=== PATIENT | male | born 1990 | race Caucasian/White ===

== ENCOUNTER 2020-01-18 04:45 | Emergency (ER) | payer MEDICAID, SELFPAY ==
[~2020-01-18] VITALS: Ht 182.9 cm; Wt 68.0 kg
[2020-01-18 04:50] VITALS: BP_SYST 125
[2020-01-18 06:03] LABS: BILIRUBIN,URINE NEGATIVE (NEGATIVE); BLOOD, URINE NEGATIVE (NEGATIVE); COLOR,URINE YELLOW (YELLOW); GLUCOSE,URINE NEGATIVE (NEGATIVE); KETONES,URINE NEGATIVE (NEGATIVE); LEUKOCYTE ESTERASE ,URINE NEGATIVE (NEGATIVE); NITRITE, URINE NEGATIVE (NEGATIVE); PROTEIN URINE NEGATIVE (NEGATIVE); UROBILINOGEN,URINE 0.2 (0.2-1.0)
[2020-01-18 06:07] LABS: CLARITY/URINE SLIGHTLY HAZY (CLEAR)
[2020-01-18 06:14] LABS: BARBITURATE, URINE NEGATIVE (NEG <=200); BENZODIAZEPINE, URINE NEGATIVE (NEG <=150); CANNABINOID, URINE POSITIVE (NEG <=50); COCAINE, URINE NEGATIVE (NEG <=150); METHAMPHETAMINES SCREEN,URINE POSITIVE (NEG <=500); OPIATE, URINE POSITIVE (NEG <=100); PHENCYCLIDINE SCREEN,URINE NEGATIVE (NEG <=25); UR TRICYCLIC ANTIDEPRESSANTS NEGATIVE (NEG <=300); URINE AMPHETAMINE POSITIVE (NEG <=500); URINE METHADONE NEGATIVE (NEG <=200); URINE OXYCODONE SCREEN NEGATIVE (NEG <=100); URINE PROPOXYPHENE SCREEN NEGATIVE (NEG <=300)
[2020-01-18 08:02] VITALS: BP_SYST 121
== END 2020-01-18 08:05 | disposition home or self-care (01) ==
LOC: SED 04:45
DX: F19.10 Other psychoactive substance abuse, uncomplicated (principal); Z20.828 Contact with and (suspected) exposure to other viral communicable diseases
CPT/HCPCS: 80307; 81003; 87081; 99283